=== PATIENT | female | born 1975 | race Caucasian/White ===

== ENCOUNTER 2017-10-12 19:13 | Emergency (ER) | payer MEDICAID ==
[2017-10-12 20:43] LABS: APPEARANCE HAZY (CLEAR); BILIRUBIN NEGATIVE (NEGATIVE); COLOR YELLOW (YELLOW); GLUCOSE NEGATIVE (NEGATIVE); KETONE NEGATIVE (NEGATIVE); NITRITE NEGATIVE (NEGATIVE); PROTEIN NEGATIVE (NEGATIVE); UROBILINOGEN NORMAL (NORMAL)
[2017-10-12 20:45] LABS: BACTERIA MODERATE /hpf (NONE SEEN); MUCUS <1+ /lpf (NONE SEEN); RED CELLS - URINE 0-5 /hpf (0-5); WHITE CELLS - URINE 0-5 /hpf (0-5)
== END 2017-10-12 21:22 | disposition home or self-care (01) ==
LOC: D.ER 19:13
PROVIDERS: Nurse Practitioner Family
DX: N39.0 Urinary tract infection, site not specified (principal); M54.5 Low back pain

== ENCOUNTER → 2020-01-06 10:19 | Outpatient (CLI) | payer OTHER ==
--- NOTE | ~2020-01-06 | HEMODYNAMI ---
PATIENT:GURINDER STOLL MEDICAL RECORD: [id number] : 75 LOCATION:[facility] ADMISSION DATE: 01/06/20 Generatedon:01/06/202011:15 Patient name: GURINDER STOLL Patient #: [id number] SSN: : 1975 Date of study: 01/06/2020 Page: Of Hemodynamic Procedure Report Patient Data Patient Demographics Procedure consent was obtained First Name: GURINDER Gender: Female Last Name: DODIE : 1975 Middle Initial: C Age: 44 year(s) Patient #: [id number] Race: Unknown Additional ID: [id number] Contact details [address]: [address] [place] [address] State: [place] City: [place] Zip code: [address] Past Medical History Allergies: No known allergies Admission Admission Data Admission Date: 01/06/2020 Admission Time: 10:19 Procedure Procedure Types Cath Procedure Peripheral Cath Diagnostic Procedure Miscellaneous Aspiration/Injection (Joint) Procedure Description Procedure Date Procedure Date: 01/06/2020 Procedure Start Time: 11:04 Procedure Staff Name Function Brandan Crutis MD Performing Physician Stanford Vivas RT Monitor Procedure Data Cath Procedure Fluoroscopy Diagnostic fluoroscopy Total fluoroscopy Time: 0.6 time: 0.6 min min Diagnostic fluoroscopy Total fluoroscopy dose: 35 dose: 35 mGy mGy Hemodynamics Rest Pre Cath Intra NCS Post Cath Procedure Log Time Note 10:54:37 Stanford Vivas RT (R) (CV) sent for patient. Start room use. 10:54:40 Time tracking: Regular hours (M-F 7:00 - 5:00) 10:54:55 Patient received from Other to IR Alert and oriented. Tansferred to table in Supine position. 10:55:03 Signed procedure consent form obtained from patient. 10:55:04 Correct patient and procedure confirmed by team. 10:55:05 Full Disclosure recording started 10:55:06 - 10:55:09 Pre-procedure instructions explained to patient. 10:55:09 Pre-op teaching completed and patient verbalized understanding. 10:58:15 Patient allergic to No known allergies 10:59:15 Is patient on blood thinner?No 10:59:28 Left Hip was prepped with betadine and draped in sterile fashion. 11:03:45 Physician arrived 11:03:45 --------ALL STOP TIME OUT------ 11:03:52 Final Timeout: patient, procedure, and site verified with staff and physician. All members of the team are in agreement. 11:03:56 Left groin site verified by team. 11:04:05 Sedation plan: Local Anesthetic Medication:Lidocaine 11:04:10 Procedure started. 11:04:14 Local anesthetic to left groin with Lidocaine 1% by Brandan Curtis MD.INITIAL ACCESS ONLY 11:04:53 SAFE-T PLUS MYELOGRAM TRAY opened to sterile field. 11:12:28 Procedure ended.(Physican Out) 11:13:19 Fluoroscopy time 00.60 minutes. 11:13:23 Flurop Dose total: 35 11:13:23 Fluoroscopy dose: 35 mGy 11:13:54 isovue 200 10 cc used 11:14:11 SITE STABLE BANDAIDE APPLIED PT SENT HOME Device Usage Item Name Manufacture Quantity Catalog Hospital Part Current Minimal Lot# / Number Charge Number Stock Stock Serial# Code SAFE-T [employer] 1 [id number] PLUS MYELOGRAM TRAY Signature Audit [place] Stage Time Signature Unsigned Intra-Procedure 01/06/2020 Stanford 11:15:02 AM [facility] RT (R) (CV) [facility] [address] [place] [address]
== END | disposition home or self-care (01) ==
LOC: D.RAD 10:00
PROVIDERS: ATTEND Clinical Nurse Specialist Family Health
DX: M16.12 Unilateral primary osteoarthritis, left hip (principal)

== ENCOUNTER 2020-08-11 18:06 | Emergency (ER) | payer OTHER ==
[~2020-08-11] VITALS: Ht 172.7 cm; Wt 154.5 kg
[2020-08-11 18:13] VITALS: BP 153/83; Ht 172.7 cm; Wt 154.5 kg
[2020-08-11] MEDS ORDERED: BACTRIM DS TAB1 EAC1 PO (18:54)
== END 2020-08-11 19:47 | disposition home or self-care (01) ==
LOC: D.ER 18:06
DX: Z86.14 Personal history of Methicillin resistant Staphylococcus aureus infection (principal); M79.89 Other specified soft tissue disorders